=== PATIENT | male | born 1990 | race Caucasian/White ===

== ENCOUNTER 2017-06-30 14:43 | Emergency (ER) | payer OTHER ==
[~2017-06-30] VITALS: Ht 162.6 cm; Wt 72.0 kg
[2017-06-30] MEDS ORDERED: ACETAMINOPHEN 500MG TABLET PO ONE (19:00)
[2017-06-30] MEDS ORDERED: BACITRACIN ZINC OINT UDPKT TOP ONE (19:00)
[2017-06-30 20:07] VITALS: BP 122/68
== END 2017-06-30 20:10 | disposition home or self-care (01) ==
LOC: ER 17:02
DX: T25.011A Burn of unspecified degree of right ankle, initial encounter (principal); T25.012A Burn of unspecified degree of left ankle, initial encounter; T31.0 Burns involving less than 10% of body surface; X11.8XXA Contact with other hot tap-water, initial encounter; Y93.89 Activity, other specified; Y92.018 Other place in single-family (private) house as the place of occurrence of the external cause
CPT/HCPCS: 16000; 99284; Z7610